=== PATIENT | female | born 1975 | race Two or more races ===

== ENCOUNTER 2024-05-03 15:55 | Emergency (ER) | payer OTHER ==
[~2024-05-03] VITALS: Ht 152.4 cm; Wt 80.7 kg
[2024-05-03 16:44] LABS: BASOPHILS % (AUTO) 0.5 % (0.0-2.0); EOSINOPHILS # (AUTO) 0.2 K/uL (0.0-0.7); EOSINOPHILS % (AUTO) 2.8 % (0.0-6.0); HEMATOCRIT 37 % (33-45); HEMOGLOBIN 12.7 g/dL (11.5-14.8); LYMPHOCYTES # (AUTO) 2.5 K/uL (0.8-4.8); LYMPHOCYTES % (AUTO) 36.7 % (20.0-44.0); MEAN CORPUSCULAR HEMOGLOBIN 28 PG (26.0-33.0); MEAN CORPUSCULAR HGB CONC 34 g/dl (31.0-36.0); MEAN CORPUSCULAR VOLUME 83 fL (82-100); MONOCYTES # (AUTO) 0.5 K/uL (0.1-1.30); MONOCYTES % (AUTO) 7.6 % (2.0-12.0); NEUTROPHILS # (AUTO) 3.6 K/uL (1.8-8.9); NEUTROPHILS % (AUTO) 52.4 % (43.0-81.0); PLATELET COUNT (AUTO) 252 K/uL (150-450); RED CELL DISTRIBUTION WIDTH 14.6 % (11.5-15.0); WHITE BLOOD COUNT (AUTO) 6.8 K/uL (4.3-11.0)
[2024-05-03 16:51] LABS: CALCIUM, SERUM 8.7 mg/dL (8.5-10.1); CARBON DIOXIDE 29 mmol/L (21-32); CHLORIDE 103 mmol/L (98-107); CREATININE 0.9 mg/dL (0.6-1.3); GLUCOSE 96 mg/dL (74-106); SODIUM SERUM 137 mmol/L (136-145); UREA NITROGEN, BLOOD 12 mg/dL (7-18)
[2024-05-03] MEDS ORDERED: NAPR-1164 PO (17:18)
[2024-05-03 17:37] LABS: PREGNANCY TEST URINE QUAL NEGATIVE (NEGATIVE)
[2024-05-03 17:46] VITALS: BP 115/67; TEMP 98.7; O2SAT 100
== END 2024-05-03 17:48 | disposition home or self-care (01) ==
LOC: ER 16:05
DX: R20.2 Paresthesia of skin (principal); R07.9 Chest pain, unspecified
CPT/HCPCS: 36415; 71045-TC; 80048-TC; 84484-TC; 84703-TC; 85025-TC

== ENCOUNTER 2025-06-14 17:21 | Emergency (ER) | payer OTHER ==
[~2025-06-14] VITALS: Ht 152.4 cm; Wt 86.6 kg
[~2025-06-14 17:21] MED LIST: NAPR-1164 PO
[2025-06-14 18:14] LABS: PLATELET COUNT (AUTO) 277 K/uL (150-450); RED BLOOD CELL COUNT(AUTO) 4.86 MIL/uL (4.0-5.2); RED CELL DISTRIBUTION WIDTH 14.6 % (11.5-15.0); WHITE BLOOD COUNT (AUTO) 8.2 K/uL (4.3-11.0)
[2025-06-14 18:35] LABS: CALCIUM, SERUM 9.0 mg/dL (8.5-10.1); CREATININE 0.8 mg/dL (0.6-1.3); SODIUM SERUM 141.0 mmol/L (136-145); UREA NITROGEN, BLOOD 10.0 mg/dL (7-18)
[2025-06-14 18:39] LABS: INR 0.96 (0.91-1.10)
[2025-06-14 18:40] LABS: ASPARTATE AMINOTRANSFERASE 24.0 U/L (15-37); TOTAL PROTEIN, SERUM 8.2 g/dL (6.4-8.2)
[2025-06-14] MEDS ORDERED: IOHEXOL-350 100 ML VIAL IV ONE (18:49)
[2025-06-14 20:08] LABS: PREGNANCY TEST URINE QUAL NEGATIVE (NEGATIVE)
[2025-06-14] MEDS ORDERED: IBUP-1490 PO (20:28)
[2025-06-14 20:51] VITALS: BP 122/76; TEMP 97.9; O2SAT 98
== END 2025-06-14 20:51 | disposition home or self-care (01) ==
LOC: ER 17:28
DX: I87.2 Venous insufficiency (chronic) (peripheral) (principal); M79.671 Pain in right foot; R20.0 Anesthesia of skin; M79.604 Pain in right leg
CPT/HCPCS: 99285; 93970; 71275; 93005; 85025; 80048; 80076; 85378; 84703; 36415; 85730; Q9967